=== PATIENT | female | born 1980 | race Hispanic/Latino ===

== ENCOUNTER 2020-05-01 21:03 | Emergency (ER) | payer SELFPAY ==
[~2020-05-01] VITALS: Ht 152.4 cm; Wt 72.6 kg
[2020-05-01] MEDS ORDERED: KETOROLAC TROMETHAMINE 60 MG/2 ML VIAL IM ONE (21:45)
--- NOTE | 2020-05-01 21:56 | Emergency Department Note ---
History of Present Illnes History of Present Illness Chief Complaint: COVID PUI History of Present Illness This is a 39 year old female REPORTS PAIN TO MID STERNAL CHEST WHEN COUGHING; PT IS COVID + X1.5 MONTHS; WAS RETESTED ON TUESDAY AT TESTING CENTER Tuesday04/26/2020 AND RESULTED +; RESP ARE EVEN AND UNLABORED, O2 SAT RA 100%. Historian: Patient Arrival Mode: Car Onset (how long ago): week(s) (6) Location: CHEST Quality: PAIN WITH COUGHING Radiation: Reports non-radiation Severity: moderate Onset quality: gradual Duration (how long): week(s) (6) Timing of current episode: constant Progression: unchanged Chronicity: chronic Context: Reports recent illness (COVID +) Relieving factors: none Exacerbating factors: other (COUGHING, DEEP INSPIRATION) Associated symptoms: Reports denies other symptoms Treatments prior to arrival: none Past Medical/Family History Physician Review I have reviewed the patient's past medical and family history. Any updates have been documented here. Past Medical History Recent Fever: Yes Clinical Suspicion of Infectio: Yes New/Unexplained Change in Ment: No Past Medical History: None Other Surgery: FALLOPIAN TUBE REMOVED ON THE RIGHT SIDE Social History Smoking Cessation: Current every day smoker Counseling Performed: No Alcohol Use: None Any Illegal Drug Use: No Physically hurt or threatened: No Other Last Tetanus: 2011 Any Pre-Existing Lines (PICC,: No Review of Systems Review of Systems Constitutional: Reports no symptoms EENTM: Reports no symptoms Cardiovascular: Reports as per HPI Respiratory: Reports as per HPI Gastrointestinal: Reports no symptoms Genitourinary: Reports no symptoms Musculoskeletal: Reports no symptoms Integumentary: Reports no symptoms Neurological: Reports no symptoms Psychological: Reports no symptoms Endocrine: Reports no symptoms Hematological/Lymphatic: Reports no symptoms Physical Exam Related Data Allergies: Coded Allergies: No Known Allergies (Unverified , 12/15/12) Triage Vital Signs Vital Signs Date Time Temp Pulse Resp B/P (MAP) Pulse Ox O2 Delivery O2 Flow Rate FiO2 05/01/20 21:44 99.4 76 17 134/73 100 Room Air Vital signs reviewed: Yes Physical Exam CONSTITUTIONAL Constitutional: Present well-developed, Present well-nourished; Absent distressed HENT HENT: Present normocephalic, Present atraumatic, Present oropharynx clear/moist, Present nose normal HENT L/R: Present left ext ear normal, Present right ext ear normal EYES Eyes: Reports PERRL, Reports conjunctivae normal NECK Neck: Present ROM normal PULMONARY Pulmonary: Present effort normal, Present breath sounds normal, Present chest tenderness (WITH PALPATION OF STERNUM) CARDIOVASCULAR Cardiovascular: Present regular rhythm, Present heart sounds normal, Present capillary refill normal, Present normal rate GASTROINTESTINAL Abdominal: Present soft, Present nontender, Present bowel sounds normal GENITOURINARY Genitourinary: Present exam deferred SKIN Skin: Present warm, Present dry MUSCULOSKELETAL Musculoskeletal: Present ROM normal NEUROLOGICAL Neurological: Present alert, Present oriented x 3, Present no gross motor or sensory deficits PSYCHOLOGICAL Psychological: Present mood/affect normal, Present judgement normal Results Imaging Imaging results reviewed: Yes Procedures 12 Lead ECG Interpretation ECG Interpretation : ECG: ECG 1 Clam Bed Worker: Interpreted by ED physician Date: May 01, 2020 Time: 22:02 Rhythm: sinus rhythm Rate: normal BPM: 68 QRS axis: normal T waves flattening: V1 Q waves: III Clinical Impression: abnormal ECG Additional Comments NON ACUTE FINDINGS Assessment & Plan Medical Decision Making MDM PT WITH CHEST PAIN WITH COUGH, HAS BEEN POSITIVE FOR COVID FOR PAST 6 WEEKS EKG,CXR ORDERED TO EVAL FOR MYOCARDIAL INFARCTION/ISCHEMIA, PNEUMOTHORAX. TORADOL 60 MG IM ORDERED Assessment & Plan Final Impression: (1) COVID-19 (2) Chest wall pain Depart Disposition: HOME, SELF-CARE Last Vital Signs Date Time Temp Pulse Resp B/P (MAP) Pulse Ox O2 Delivery O2 Flow Rate FiO2 05/01/20 21:44 99.4 76 17 134/73 100 Room Air Home Meds No Active Prescriptions or Reported Meds Medications in the ED Ketorolac Tromethamine 60 mg ONCE ONCE IM ; Start 05/01/20 at 21:45; Stop 05/01/20 at 21:46; Status UNV PATRICE FLEMING MD May 01, 2020 21:56
--- NOTE | 2020-05-01 23:16 | Diagnostic Imaging Report ---
EXAMINATION: CHEST SINGLE (PORTABLE) INDICATION: Cough, chest pain, Covid positive COMPARISON: None FINDINGS: TUBES and LINES: None. LUNGS: Normal lung volumes. Subtle linear left basilar opacity. No consolidations. PLEURA: No pleural effusion or pneumothorax. HEART AND MEDIASTINUM: The cardiomediastinal silhouette is unremarkable. BONES AND SOFT TISSUES: No acute osseous lesion. Soft tissues are unremarkable. UPPER ABDOMEN: No free air under the diaphragm. IMPRESSION: Subtle linear left basilar opacities there is likely atelectasis although pneumonia is possible. Signed by: Vimal Alston DO on 05/01/2020 11:12 PM
== END 2020-05-01 23:20 | disposition home or self-care (01) ==
LOC: ER 21:15
DX: U07.1 COVID-19 (principal); R07.89 Other chest pain; R05 Cough; R94.31 Abnormal electrocardiogram [ECG] [EKG]; F17.210 Nicotine dependence, cigarettes, uncomplicated
CPT/HCPCS: 71045; 93005; 99283; J1885

== ENCOUNTER 2020-11-24 22:57 | Emergency (ER) | payer SELFPAY ==
[~2020-11-24] VITALS: Ht 152.4 cm; Wt 72.6 kg
[2020-11-25] MEDS ORDERED: KETOROLAC TROMETHAMINE 30 MG/ML VIAL IV STA (00:01)
[2020-11-25 00:14] LABS: BASOPHILS # (AUTO) 0.1 (0.0-0.1); BASOPHILS % 0.4 % (0.0-1.0); EOSINOPHILS # (AUTO) 0.2 (0.0-0.4); EOSINOPHILS % 1.9 % (0.0-6.0); HEMATOCRIT 36.1 % (34.2-44.1); HEMOGLOBIN 10.9 g/dL (12.0-16.0); LYMPHOCYTES # (AUTO) 2.3 (1.0-3.2); MEAN CORPUSCULAR HGB CONC 30.2 g/dL (31-35); MEAN CORPUSCULAR VOLUME 76.3 fL (81-99); MONOCYTES # (AUTO) 0.6 (0.2-0.8); MONOCYTES % 5.6 % (4.4-11.3); NEUTROPHILS # (AUTO) 8.2 (2.1-6.9); NEUTROPHILS % 71.8 % (38.7-80.0); PLATELET COUNT 357 x10e3/uL (140-360); RED BLOOD COUNT 4.73 x10e6/uL (3.6-5.1); RED CELL DISTRIBUTION WIDTH 16.9 % (11.7-14.4)
[2020-11-25 00:36] LABS: ALANINE AMINOTRANSFERASE 13 IU/L (0-55); ALBUMIN 3.6 g/dL (3.5-5.0); ALBUMIN/GLOBULIN RATIO 0.8 (0.8-2.0); ALKALINE PHOSPHATASE 83 IU/L (40-150); ANION GAP 12.8 mmol/L (8-16); BLOOD UREA NITROGEN 12 mg/dL (7-26); BUN/CREATININE RATIO 16 (6-25); CALCIUM 8.6 mg/dL (8.4-10.2); CARBON DIOXIDE 23 mmol/L (22-29); CHLORIDE 106 mmol/L (98-107); CREATININE, SERUM 0.74 mg/dL (0.57-1.11); EST GLOMERULAR FILTRATION RATE > 60 ML/MIN (60-); GLUCOSE 101 mg/dL (74-118); POTASSIUM 3.8 mmol/L (3.5-5.1); SODIUM 138 mmol/L (136-145)
[2020-11-25] MEDS ORDERED: KETOROLAC TROMETHAMINE 30 MG/ML VIAL IM ONE (01:45)
== END 2020-11-25 01:48 | disposition home or self-care (01) ==
LOC: ER 11-25 00:02
DX: M25.512 Pain in left shoulder (principal); M54.9 Dorsalgia, unspecified; F17.210 Nicotine dependence, cigarettes, uncomplicated
CPT/HCPCS: 36415; 71045; 73030; 80053; 83690; 84484; 85025; 99283; J1885

== ENCOUNTER 2021-07-05 18:03 | Emergency (ER) | payer SELFPAY ==
[~2021-07-05] VITALS: Ht 154.9 cm; Wt 80.7 kg
[2021-07-05] MEDS ORDERED: DEXAMETHASONE SOD PHOS 10 MG/1 ML VIAL IM STA (18:15)
[2021-07-05 18:50] LABS: STREPTOCOCCUS GRP A ANTIGEN NEGATIVE (NEGATIVE)
[2021-07-05 18:54] LABS: INFLUENZAE A&B ANTIGEN (RAPID) NEGATIVE (NEGATIVE)
[2021-07-05 19:07] LABS: CLARITY,URINE HAZY (CLEAR)
[2021-07-05 19:08] LABS: COLOR,URINE YELLOW (YELLOW); KETONES,URINE NEGATIVE (NEGATIVE); LEUKOCYTE ESTERASE ,URINE SMALL (NEGATIVE); NITRITE,URINE NEGATIVE (NEGATIVE); PROTEIN,URINE DIPSTICK NEGATIVE (NEGATIVE); URINE UROBILINOGEN 2 mg/dL (0.2 - 1)
[2021-07-05 19:09] LABS: AMORPHOUS SEDIMENT,URINE FEW (FEW); BACTERIA,URINE MODERATE /HPF; EPITHELIAL CELLS,URINE MODERATE /LPF; MUCUS,URINE FEW (RARE); WBC,URINE (MAN) 21-50 /HPF (0-5)
[2021-07-05] MEDS ORDERED: VENTOLIN HFA18 GM INH (19:13)
[2021-07-05] MEDS ORDERED: PREDNISONE20 MG PO (19:13)
[2021-07-05] MEDS ORDERED: LEVOFLOXACIN750 MG PO (19:13)
[2021-07-05] MEDS ORDERED: ULTRAM50 MG PO (19:43)
== END 2021-07-05 19:47 | disposition home or self-care (01) ==
LOC: ER 18:31
DX: R05.9 Cough, unspecified (principal); J06.9 Acute upper respiratory infection, unspecified; N39.0 Urinary tract infection, site not specified
CPT/HCPCS: 71045; 81001; 83518; 87070; 87400; 99283

== ENCOUNTER 2021-12-12 18:13 | Emergency (ER) | payer SELFPAY ==
[~2021-12-12] VITALS: Ht 154.9 cm; Wt 80.7 kg
[~2021-12-12 18:13] MED LIST: LEVOFLOXACIN750 MG PO; PREDNISONE20 MG PO; ULTRAM50 MG PO; VENTOLIN HFA18 GM INH
[2021-12-12] MEDS ORDERED: KETOROLAC TROMETHAMINE 60 MG/2 ML VIAL IM ONE (18:30)
[2021-12-12] MEDS ORDERED: KETOROLAC TROMETHAMINE 60 MG/2 ML VIAL ONE (18:34)
== END 2021-12-12 18:34 | disposition home or self-care (01) ==
LOC: ER 18:17
DX: M54.42 Lumbago with sciatica, left side (principal)
CPT/HCPCS: 99282; J1885

== ENCOUNTER 2022-07-09 21:35 | Emergency (ER) | payer SELFPAY ==
[~2022-07-09] VITALS: Ht 154.9 cm; Wt 80.7 kg
[2022-07-09] MEDS ORDERED: ONDANSETRON HCL 4 MG ORAL DISINTEGRATING TAB PO ONE (22:00)
[2022-07-09] MEDS ORDERED: ONDANSETRON HCL 4 MG ORAL DISINTEGRATING TAB ONE (22:04)
[2022-07-09] MEDS ORDERED: BROMFED DM COU118 ML PO (23:06)
[2022-07-09] MEDS ORDERED: IBUPROFEN800 MG PO (23:06)
[2022-07-09] MEDS ORDERED: ONDANSETRON ODT4 MG PO (23:06)
== END 2022-07-09 23:16 | disposition home or self-care (01) ==
LOC: ER 21:39
DX: R50.9 Fever, unspecified (principal); J06.9 Acute upper respiratory infection, unspecified; B34.9 Viral infection, unspecified; R11.2 Nausea with vomiting, unspecified; Z20.822 Contact with and (suspected) exposure to COVID-19
CPT/HCPCS: 83518; 87070; 87400; 99283; Q0162; U0002

== ENCOUNTER 2022-12-02 15:33 | Emergency (ER) | payer SELFPAY ==
[~2022-12-02] VITALS: Ht 154.9 cm; Wt 80.7 kg
[~2022-12-02 15:33] MED LIST changes: +BROMFED DM COU118 ML PO; +IBUPROFEN800 MG PO; +ONDANSETRON ODT4 MG PO
[2022-12-02] MEDS ORDERED: VENTOLIN HFA18 GM INH (15:46)
[2022-12-02] MEDS ORDERED: BENZONATATE100 MG PO (15:46)
== END 2022-12-02 20:28 | disposition home or self-care (01) ==
LOC: ER 15:39
DX: R05.9 Cough, unspecified (principal); U07.1 COVID-19
CPT/HCPCS: 99282